=== PATIENT | male | born 1975 | race Asian ===

== ENCOUNTER 2019-05-06 12:53 | Emergency (ER) | payer OTHER ==
[~2019-05-06] VITALS: Ht 172.7 cm; Wt 65.0 kg
[2019-05-06] MEDS ORDERED: IBUPROFEN 600MG TABLET PO ONE (14:30)
[2019-05-06 15:35] VITALS: BP 121/78
== END 2019-05-06 16:06 | disposition home or self-care (01) ==
LOC: ER 13:41
DX: S16.1XXA Strain of muscle, fascia and tendon at neck level, initial encounter (principal); M54.5 Low back pain; V49.88XA Car occupant (driver) (passenger) injured in other specified transport accidents, initial encounter; Y93.89 Activity, other specified; Y92.89 Other specified places as the place of occurrence of the external cause; Y99.8 Other external cause status
CPT/HCPCS: 72040; 99283